=== PATIENT | male | born 1960 | race African-American/Black ===

== ENCOUNTER 2017-04-18 10:42 | Emergency (ER) | payer OTHER ==
[~2017-04-18] VITALS: Ht 182.9 cm; Wt 83.0 kg
[2017-04-18] MEDS ORDERED: HALOPERIDOL LACTATE 5 MG/ML AMP IM ONE (11:00)
[2017-04-18] MEDS ORDERED: LORazepam 2 MG/ML VIAL IM ONE (11:00)
[2017-04-18 11:02] VITALS: BP 167/93; PULSE 136; RESP 17; TEMP 100.5; O2SAT 98
--- NOTE | 2017-04-18 11:03 | PD ---
HPI Chief Complaint: Psychiatric Symptoms Time Seen by Provider: 10:47 Travel History International Travel<30 days: No Contact w/Intl Traveler<30days: No Traveled to known affect area: No History of Present Illness HPI 56-year-old male was Gleason acted and brought in for psychiatric evaluation. Patient was found wandering on the street and walking between cars. Patient has periods of combative behavior. Patient has history of paranoid schizophrenia. Patient states that he is not on any medication now. Patient stated he drank some alcohol this morning. Patient denies any headache. Patient denies any chest pain or shortness of breath. Patient denies abdominal pain. Patient denies any focal weakness or numbness of extremity. Patient denies any recent illicit drug abuse. PFSH Past Medical History Depression: Yes Diminished Hearing: Yes Past Surgical History Surgical History: No Previous Surgery Social History Alcohol Use: Yes Tobacco Use: Yes Substance Use: Yes Allergies-Medications (Allergen,Severity, Reaction): Coded Allergies: No Known Allergies (Verified Allergy, Mild, 02/05/06) Reported Meds & Prescriptions Reported Meds & Active Scripts Active Reported Unk Review of Systems General / Constitutional: No: Fever Eyes: No: Visual changes HENT: No: Headaches Cardiovascular: No: Chest Pain or Discomfort Respiratory: No: Shortness of Breath Gastrointestinal: No: Abdominal Pain Genitourinary: No: Dysuria Musculoskeletal: No: Pain Skin: No Rash Neurologic: No: Weakness Psychiatric: No: Depression Endocrine: No: Polydipsia Hematologic/Lymphatic: No: Easy Bruising Physical Exam Narrative GENERAL: Well-nourished, well-developed patient. SKIN: Focused skin assessment warm/dry. HEAD: Normocephalic. EYES: No scleral icterus. No injection or drainage. NECK: Supple, trachea midline. No JVD or lymphadenopathy. CARDIOVASCULAR: Regular rate and rhythm without murmurs, gallops, or rubs. RESPIRATORY: Breath sounds equal bilaterally. No accessory muscle use. GASTROINTESTINAL: Abdomen soft, non-tender, nondistended. MUSCULOSKELETAL: No cyanosis, or edema. BACK: Nontender without obvious deformity. No CVA tenderness. Patient has a small abrasion the radial aspect of the left wrist. Neurologic exam: Patient's awake and alert oriented to place and person. Patient moves all extremity well. No obvious focal neurological deficit. Data Data Last Documented VS Vital Signs Date Time Temp Pulse Resp B/P (MAP) Pulse Ox O2 Delivery O2 Flow Rate FiO2 04/18/17 11:02 100.5 136 17 167/93 (117) 98 Room Air Orders Orders Haloperidol Inj (Haldol Inj) (04/18/17 11:00) Lorazepam Inj (Ativan Inj) (04/18/17 11:00) Complete Blood Count With Diff (04/18/17 10:52) Comprehensive Metabolic Panel (04/18/17 10:52) Psych Screen (04/18/17 10:52) Drug Screen, Random Urine (04/18/17 10:52) Alcohol (Ethanol) (04/18/17 10:52) Labs Laboratory Tests Test 04/18/17 10:57 04/18/17 12:48 White Blood Count 6.3 TH/MM3 Red Blood Count 4.85 MIL/MM3 Hemoglobin 14.7 GM/DL Hematocrit 44.9 % Mean Corpuscular Volume 92.5 FL Mean Corpuscular Hemoglobin 30.3 PG Mean Corpuscular Hemoglobin Concent 32.8 % Red Cell Distribution Width 14.3 % Platelet Count 325 TH/MM3 Mean Platelet Volume 7.9 FL Neutrophils (%) (Auto) 44.1 % Lymphocytes (%) (Auto) 40.8 % Monocytes (%) (Auto) 14.2 % Eosinophils (%) (Auto) 0.7 % Basophils (%) (Auto) 0.2 % Neutrophils # (Auto) 2.8 TH/MM3 Lymphocytes # (Auto) 2.6 TH/MM3 Monocytes # (Auto) 0.9 TH/MM3 Eosinophils # (Auto) 0.0 TH/MM3 Basophils # (Auto) 0.0 TH/MM3 CBC Comment DIFF FINAL Differential Comment Blood Urea Nitrogen 12 MG/DL Creatinine 2.12 MG/DL Random Glucose 194 MG/DL Total Protein 8.5 GM/DL Albumin 4.5 GM/DL Calcium Level 9.0 MG/DL Alkaline Phosphatase 75 U/L Aspartate Amino Transf (AST/SGOT) 34 U/L Alanine Aminotransferase (ALT/SGPT) 30 U/L Total Bilirubin 0.4 MG/DL Sodium Level 136 MEQ/L Potassium Level 3.7 MEQ/L Chloride Level 98 MEQ/L Carbon Dioxide Level 12.7 MEQ/L Anion Gap 25 MEQ/L Estimat Glomerular Filtration Rate 40 ML/MIN Ethyl Alcohol Level LESS THAN 3 MG/DL Urine Opiates Screen NEG Urine Barbiturates Screen NEG Urine Amphetamines Screen NEG Urine Benzodiazepines Screen NEG Urine Cocaine Screen POS Urine Cannabinoids Screen POS MDM Medical Decision Making Medical Screen Exam Complete: Yes Emergency Medical Condition: Yes Interpretation(s) 1419 p.m. CBC within normal limit. Bicarbonate 12.7. Anion gap 25. Creatinine 2.12. GFR 40. Urine drug screen positive for cocaine and cannabis. Alcohol negative. Differential Diagnosis Differential diagnosis including paranoid schizophrenia, adjustment disorder, drug-induced mood disorder, psychosis Narrative Course 56-year-old male with history paranoid schizophrenia was found wandering on the street and combative behavior. Patient was Victorino pop. Roosevelt Avery MD Apr 18, 2017 11:03
[2017-04-18 11:30] LABS: AUTOMATED NEUTROPHIL # 2.8 TH/MM3 (1.8-7.7); BASOPHIL % 0.2 % (0.0-2.0); EOSINOPHIL % 0.7 % (0.0-4.0); HEMATOCRIT 44.9 % (39.0-51.0); HEMO FLAGS DIFF FINAL; LYMPH % 40.8 % (9.0-44.0); LYMPHOCYTE # 2.6 TH/MM3 (1.0-4.8); MEAN CELL VOLUME 92.5 FL (80.0-100.0); MEAN CORPUSCULAR HEMOGLOBIN 30.3 PG (27.0-34.0); MEAN CORPUSCULAR HGB CONC 32.8 % (32.0-36.0); MONO % 14.2 % (0.0-8.0); NEUT % 44.1 % (16.0-70.0); PLATELET COUNT 325 TH/MM3 (150-450); RED BLOOD COUNT 4.85 MIL/MM3 (4.50-5.90); RED CELL DISTRIBUTION WIDTH 14.3 % (11.6-17.2); WHITE BLOOD COUNT 6.3 TH/MM3 (4.0-11.0)
[2017-04-18 11:50] LABS: ALT (GPT) 30 U/L (12-78); ANION GAP 25 MEQ/L (5-15); AST (GOT) 34 U/L (15-37); BICARBONATE 12.7 MEQ/L (21.0-32.0); BLOOD UREA NITROGEN 12 MG/DL (7-18); CHLORIDE 98 MEQ/L (98-107); GLOMERULAR FILTRATION RATE 40 ML/MIN (>89); POTASSIUM 3.7 MEQ/L (3.5-5.1); SODIUM (NA) 136 MEQ/L (136-145)
[2017-04-18 11:52] LABS: ALKALINE PHOSPHATASE 75 U/L (45-117); TOTAL BILIRUBIN ADULT 0.4 MG/DL (0.2-1.0)
[2017-04-18 11:56] LABS: ALCOHOL LESS THAN 3 MG/DL (0-5)
[2017-04-18 14:09] VITALS: BP 136/81; PULSE 92; RESP 19; O2SAT 99
[2017-04-18] MEDS ORDERED: SODIUM CHLOR 0.9% 1000 ML INJ 1,000 ML IV ONE (14:30)
[2017-04-18 17:06] LABS: ACETAMINOPHEN LESS THAN 2.0 MCG/ML (10.0-30.0); ANION GAP 7 MEQ/L (5-15); BICARBONATE 26.8 MEQ/L (21.0-32.0); BLOOD UREA NITROGEN 12 MG/DL (7-18); CHLORIDE 103 MEQ/L (98-107); GLOMERULAR FILTRATION RATE 55 ML/MIN (>89); SODIUM (NA) 137 MEQ/L (136-145)
[2017-04-18 18:46] VITALS: BP 122/69; PULSE 81; RESP 18; TEMP 98.4; O2SAT 98
--- NOTE | 2017-04-18 18:53 | PD ---
Physical Exam Narrative Patient signed out to me by Dr. Avery. Please see his documentation for complete details. Sign out was to follow up repeat BMP. Patient was brought in under a robertson act and had to be sedated. Original labs showed an anion gap of 25 and bicarb of 12. Other labs were within normal limits. Data Data Last Documented VS Vital Signs Date Time Temp Pulse Resp B/P (MAP) Pulse Ox O2 Delivery O2 Flow Rate FiO2 04/18/17 18:46 98.4 81 18 122/69 (86) 98 Room Air Orders Orders Haloperidol Inj (Haldol Inj) (04/18/17 11:00) Lorazepam Inj (Ativan Inj) (04/18/17 11:00) Complete Blood Count With Diff (04/18/17 10:52) Comprehensive Metabolic Panel (04/18/17 10:52) Psych Screen (04/18/17 10:52) Drug Screen, Random Urine (04/18/17 10:52) Alcohol (Ethanol) (04/18/17 10:52) Sodium Chlor 0.9% 1000 Ml Inj (Ns 1000 M (04/18/17 14:30) Osmolality,Serum (04/18/17 14:23) Osmolality, Urine (04/18/17 14:23) Salicylates (Aspirin) (04/18/17 14:24) Basic Metabolic Panel (Bmp) (04/18/17 14:25) Tylenol (Acetaminophen) (04/18/17 14:25) Diet Regular Basic (04/18/17 Dinner) Labs Laboratory Tests Test 04/18/17 10:57 04/18/17 12:48 04/18/17 14:40 White Blood Count 6.3 TH/MM3 Red Blood Count 4.85 MIL/MM3 Hemoglobin 14.7 GM/DL Hematocrit 44.9 % Mean Corpuscular Volume 92.5 FL Mean Corpuscular Hemoglobin 30.3 PG Mean Corpuscular Hemoglobin Concent 32.8 % Red Cell Distribution Width 14.3 % Platelet Count 325 TH/MM3 Mean Platelet Volume 7.9 FL Neutrophils (%) (Auto) 44.1 % Lymphocytes (%) (Auto) 40.8 % Monocytes (%) (Auto) 14.2 % Eosinophils (%) (Auto) 0.7 % Basophils (%) (Auto) 0.2 % Neutrophils # (Auto) 2.8 TH/MM3 Lymphocytes # (Auto) 2.6 TH/MM3 Monocytes # (Auto) 0.9 TH/MM3 Eosinophils # (Auto) 0.0 TH/MM3 Basophils # (Auto) 0.0 TH/MM3 CBC Comment DIFF FINAL Differential Comment Blood Urea Nitrogen 12 MG/DL 12 MG/DL Creatinine 2.12 MG/DL 1.59 MG/DL Random Glucose 194 MG/DL 69 MG/DL Total Protein 8.5 GM/DL Albumin 4.5 GM/DL Calcium Level 9.0 MG/DL 8.7 MG/DL Alkaline Phosphatase 75 U/L Aspartate Amino Transf (AST/SGOT) 34 U/L Alanine Aminotransferase (ALT/SGPT) 30 U/L Total Bilirubin 0.4 MG/DL Sodium Level 136 MEQ/L 137 MEQ/L Potassium Level 3.7 MEQ/L 4.0 MEQ/L Chloride Level 98 MEQ/L 103 MEQ/L Carbon Dioxide Level 12.7 MEQ/L 26.8 MEQ/L Anion Gap 25 MEQ/L 7 MEQ/L Estimat Glomerular Filtration Rate 40 ML/MIN 55 ML/MIN Serum Osmolality 314 MOSM/KG Salicylates Level 2.3 MG/DL Ethyl Alcohol Level LESS THAN 3 MG/DL Urine Opiates Screen NEG Urine Barbiturates Screen NEG Urine Amphetamines Screen NEG Urine Benzodiazepines Screen NEG Urine Cocaine Screen POS Urine Cannabinoids Screen POS Acetaminophen Level LESS THAN 2.0 MCG/ML MDM Supervised Visit with YOLANDA: No Narrative Course Repeat BMP after only a bolus of NS shows normalization of the anion gap and bicarb level. Likely first results were spurious. Patient will be medically cleared for psychiatric evaluation. Diagnosis Primary Impression: Medical clearance for psychiatric admission Condition: Stable Samantha Rose MD Apr 18, 2017 18:53
[2017-04-18 20:11] VITALS: BP 130/72; PULSE 78; RESP 18; O2SAT 98
[2017-04-19 01:15] VITALS: BP 119/72; PULSE 71; RESP 18; O2SAT 97
[2017-04-19 06:26] VITALS: BP 120/84; PULSE 76; RESP 18; O2SAT 100
[2017-04-19 10:47] VITALS: BP 112/70; PULSE 78; RESP 16
--- NOTE | 2017-04-19 13:27 | PD ---
History of Present Illness Chief Complaint: Psychiatric Symptoms Time Seen by Provider: 13:00 Travel History International Travel<30 Days: No Contact w/Intl Traveler<30days: No Known affected area: No Legal Status Legal Status: Gleason Act Gleason Act Signed By: Valeri Balderrama History of Present Illness: History of Present Illness 56-year-old male with history of depression and schizophrenia who presents to ED under a Gleason act initiated by KHUSHBOO. As per the Gleason act " he appeared to be unaware of his surroundings and very anxious. His behavior was strange and erratic and he thought that people were coming to harm him. During the conversation Gurdeep became nervous and tried to leave the area on foot prior to finishing with my evaluation. He then ran in to traffic" . Patient stated he drank some alcohol this morning Patient denies any recent illicit drug abuse although his toxicology screen is positive for cocaine and cannabinoids. EMR is reviewed. He has been evaluated by psychiatry in 2005 and . Patient has been monitored in [facility] with no behavioral concerns and no suicidality. he has slept well and has eaten all meals offered to him. He is calm and cooperative. Speech is clear and logical. He denies hearing any voices. Denies any suicidal or homicidal ideation. He states that he got to [facility] yesterday after he took a bus form [place] which is same presentation in 2005. He reports that when he got to [facility] that some people were after him and he was trying to get help from the police and the ambulance. He denies that he ran into the traffic to hurt himself but rather to get the attention of the police and ambulance. He believed that once in the ED that the nurse put some medication in his vein as well. In terms of treatment he tells me that he has a hx of depression but that is not currently receiving any treatment. PFSH Past Medical History Depression: Yes Diminished Hearing: Yes Past Surgical History Surgical History: No Previous Surgery Psychiatric History Psychiatric History Hx Psychiatric Treatment: reports hx of depression. Record reflect record of schizophrenia. History of Inpatient Treatment: Yes (As per old record he has been hospitalized in [place] at [facility]. ) Guns or firearms in home: No Social History Reports that he is single and that he lives in [place]. Unemployed. Hx Alcohol Use: Yes Hx Tobacco Use: Yes Hx Substance Use: Yes (PATIENT DENIES) Substance Use Type: Marijuana, Cocaine Hx of Substance Use Treatment: No Family Psychiatric History Denies any Allergies-Medications (Allergen,Severity, Reaction): Coded Allergies: No Known Allergies (Verified Allergy, Mild, 02/05/06) Reported Meds & Prescriptions Reported Meds & Active Scripts Active Reported Unk Review of Systems Except as stated in HPI: all other systems reviewed are Neg Exam Alert: Yes Rhine: Person (ox4) Mood: Calm Affect: Appropriate Speech: Clear, Logical Eye Contact: Normal Memory Intact: Comment (Not impaired) Hallucinations: Other (Negative) Delusions: No Suicidal: Ideation (deneis any ) Homicidal: Ideation (Denies any) Insight/Judgement POOR. Not impaired. MDM Medical Decision Making Medical Record Reviewed: Yes Assessment/Plan 56-year-old male with history of depression and schizophrenia who presents to ED under a Gleason act initiated by KHUSHBOO. As per the Gleason act " he appeared to be unaware of his surroundings and very anxious. His behavior was strange and erratic and he thought that people were coming to harm him. During the conversation Gurdeep became nervous and tried to leave the area on foot prior to finishing with my evaluation. He then ran in to traffic" . Patient stated he drank some alcohol this morning Patient denies any recent illicit drug abuse although his toxicology screen is positive for cocaine and cannabinoids. At the present time he is not psychotic not suicidal or homicidal ideation, intent or plan. He may have presented behavior indicative of psychosis but in context of substance use and being under the influence of cocaine. he is requesting discharge and does nto meet Gleason act criteria. Patient is now clear for discharge from psychiatry. The BA is lifted. Orders Orders Sodium Chlor 0.9% 1000 Ml Inj (Ns 1000 M (04/18/17 14:30) Osmolality,Serum (04/18/17 14:23) Osmolality, Urine (04/18/17 14:23) Salicylates (Aspirin) (04/18/17 14:24) Basic Metabolic Panel (Bmp) (04/18/17 14:25) Tylenol (Acetaminophen) (04/18/17 14:25) Diet Regular Basic (04/18/17 Dinner) Diet Regular Basic (04/19/17 Lunch) Results Vital Signs Date Time Temp Pulse Resp B/P (MAP) Pulse Ox O2 Delivery O2 Flow Rate FiO2 04/19/17 10:47 78 16 112/70 (84) 04/19/17 06:26 76 18 120/84 (96) 100 04/19/17 01:15 71 18 119/72 (88) 97 Room Air 04/18/17 20:11 78 18 130/72 (91) 98 04/18/17 18:46 98.4 81 18 122/69 (86) 98 Room Air 04/18/17 14:09 92 19 136/81 (99) 99 Room Air Laboratory Tests Test 04/18/17 14:40 Blood Urea Nitrogen 12 Creatinine 1.59 Random Glucose 69 Calcium Level 8.7 Sodium Level 137 Potassium Level 4.0 Chloride Level 103 Carbon Dioxide Level 26.8 Anion Gap 7 Estimat Glomerular Filtration Rate 55 Acetaminophen Level LESS THAN 2.0 Diagnosis Primary Impression: substace Induced psychosis Additional Impression: Cocaine abuse Psychiatrically Cleared: Yes Med/ Other Pt Specific Info: No Meds Exist/No RX given Disposition: 01 DISCHARGE HOME Condition: Stable Problem Qualifiers Tessa Mcclellan Apr 19, 2017 13:27
--- NOTE | 2017-04-19 13:35 | PD ---
Physical Exam Time Seen by Provider: 13:33 Narrative Please refer to previous providers documentation for details concerning pts current visit Data Data Last Documented VS Vital Signs Date Time Temp Pulse Resp B/P (MAP) Pulse Ox O2 Delivery O2 Flow Rate FiO2 04/19/17 10:47 78 16 112/70 (84) 04/19/17 06:26 100 04/19/17 01:15 Room Air 04/18/17 18:46 98.4 Orders Orders Haloperidol Inj (Haldol Inj) (04/18/17 11:00) Lorazepam Inj (Ativan Inj) (04/18/17 11:00) Complete Blood Count With Diff (04/18/17 10:52) Comprehensive Metabolic Panel (04/18/17 10:52) Psych Screen (04/18/17 10:52) Drug Screen, Random Urine (04/18/17 10:52) Alcohol (Ethanol) (04/18/17 10:52) Sodium Chlor 0.9% 1000 Ml Inj (Ns 1000 M (04/18/17 14:30) Osmolality,Serum (04/18/17 14:23) Osmolality, Urine (04/18/17 14:23) Salicylates (Aspirin) (04/18/17 14:24) Basic Metabolic Panel (Bmp) (04/18/17 14:25) Tylenol (Acetaminophen) (04/18/17 14:25) Diet Regular Basic (04/18/17 Dinner) Diet Regular Basic (04/19/17 Lunch) Diet Regular Basic (04/19/17 Dinner) Labs Laboratory Tests Test 04/18/17 10:57 04/18/17 12:30 04/18/17 12:48 04/18/17 14:40 White Blood Count 6.3 TH/MM3 Red Blood Count 4.85 MIL/MM3 Hemoglobin 14.7 GM/DL Hematocrit 44.9 % Mean Corpuscular Volume 92.5 FL Mean Corpuscular Hemoglobin 30.3 PG Mean Corpuscular Hemoglobin Concent 32.8 % Red Cell Distribution Width 14.3 % Platelet Count 325 TH/MM3 Mean Platelet Volume 7.9 FL Neutrophils (%) (Auto) 44.1 % Lymphocytes (%) (Auto) 40.8 % Monocytes (%) (Auto) 14.2 % Eosinophils (%) (Auto) 0.7 % Basophils (%) (Auto) 0.2 % Neutrophils # (Auto) 2.8 TH/MM3 Lymphocytes # (Auto) 2.6 TH/MM3 Monocytes # (Auto) 0.9 TH/MM3 Eosinophils # (Auto) 0.0 TH/MM3 Basophils # (Auto) 0.0 TH/MM3 CBC Comment DIFF FINAL Differential Comment Blood Urea Nitrogen 12 MG/DL 12 MG/DL Creatinine 2.12 MG/DL 1.59 MG/DL Random Glucose 194 MG/DL 69 MG/DL Total Protein 8.5 GM/DL Albumin 4.5 GM/DL Calcium Level 9.0 MG/DL 8.7 MG/DL Alkaline Phosphatase 75 U/L Aspartate Amino Transf (AST/SGOT) 34 U/L Alanine Aminotransferase (ALT/SGPT) 30 U/L Total Bilirubin 0.4 MG/DL Sodium Level 136 MEQ/L 137 MEQ/L Potassium Level 3.7 MEQ/L 4.0 MEQ/L Chloride Level 98 MEQ/L 103 MEQ/L Carbon Dioxide Level 12.7 MEQ/L 26.8 MEQ/L Anion Gap 25 MEQ/L 7 MEQ/L Estimat Glomerular Filtration Rate 40 ML/MIN 55 ML/MIN Serum Osmolality 314 MOSM/KG Salicylates Level 2.3 MG/DL Ethyl Alcohol Level LESS THAN 3 MG/DL Urine Osmolality 463 MOSM/KG Urine Opiates Screen NEG Urine Barbiturates Screen NEG Urine Amphetamines Screen NEG Urine Benzodiazepines Screen NEG Urine Cocaine Screen POS Urine Cannabinoids Screen POS Acetaminophen Level LESS THAN 2.0 MCG/ML MDM Medical Record Reviewed: Yes Supervised Visit with YOLANDA: No Narrative Course Patient was seen and evaluated by medical staff, medically clear, evaluated by psychiatry and Gleason act was lifted. Patient will be discharged at this time. Diagnosis Primary Impression: Medical clearance for psychiatric admission Referrals: Primary Care Physician Patient Instructions: General Instructions, Medical Clearance for Psychiatric Care (GEN) Additional Instruction: Follow-up with primary care provider Return immediately with acute worsening of symptoms Disposition: 01 DISCHARGE HOME Condition: Stable Radha Eubanks EVGENY Apr 19, 2017 13:35
[2017-04-19 13:59] VITALS: BP 112/70; TEMP 97.9
== END 2017-04-19 14:02 | disposition home or self-care (01) ==
LOC: NEPD 10:42 → NEPJ 04-19 14:02
DX: F19.159 Other psychoactive substance abuse with psychoactive substance-induced psychotic disorder, unspecified (principal); F14.10 Cocaine abuse, uncomplicated
CPT/HCPCS: 80048; 80053; 80307; 83930; 83935; 85025; 96360; 96361; 96372; 99285; J1630; J2060; J7030